=== PATIENT | female | born 1950 | race Caucasian/White ===

== ENCOUNTER 2016-10-10 15:01 | Emergency (ER) | payer OTHER ==
[~2016-10-10] VITALS: Ht 154.9 cm; Wt 69.0 kg
[~2016-10-10 15:01] MED LIST: BISO1TAB14 PO; BP MED; DULO20CA45 PO; DULO30CA2 PO; INSU100V8 SQ; SERT50TA5 PO; UNKNOWN BP MED PO
[2016-10-10] MEDS ORDERED: ONDANSETRON ODT 4 MG ONE (16:11)
[2016-10-10] MEDS ORDERED: ONDANSETRON ODT 4 MG PO ONE (16:30)
[2016-10-10 17:10] VITALS: BP 139/80
== END 2016-10-10 17:12 | disposition home or self-care (01) ==
LOC: ED 16:41
DX: G43.909 Migraine, unspecified, not intractable, without status migrainosus (principal); I10 Essential (primary) hypertension
CPT/HCPCS: 99283; Q0162